=== PATIENT | female | born 1970 | race Caucasian/White ===

== ENCOUNTER 2020-06-15 17:29 | Emergency (ER) | payer MEDICAID ==
[~2020-06-15] VITALS: Ht 154.9 cm; Wt 81.7 kg
[2020-06-15] MEDS ORDERED: LEVEMIR FL100 UNIT/2 SUBQ (17:43)
[2020-06-15] MEDS ORDERED: VICTOZA0.6 MG/0.1 SUBQ (17:43)
[2020-06-15] MEDS ORDERED: LISINOPRIL20 MG PO (17:44)
[2020-06-15] MEDS ORDERED: ADDERALL 10 MG10 MG PO (17:44)
[2020-06-15] MEDS ORDERED: NEURONTIN 300M300 M2 PO (17:44)
[2020-06-15 18:16] LABS: ABSOLUTE BASOPHILS 0.1 thou/uL (0.0-0.2); ABSOLUTE EOSINOPHILS 0.1 thou/uL (0.0-0.7); ABSOLUTE LYMPHOCYTES 4.1 thou/uL (0.8-5.3); ABSOLUTE MONOCYTES 0.8 thou/uL (0.0-1.2); ABSOLUTE NEUTROPHILS 3.4 thou/uL (1.6-8.1); BASOPHILS 1.3 %; EOSINOPHILS 0.8 %; HEMATOCRIT 41.8 % (37.0-47.0); HEMOGLOBIN 14.1 gm/dL (12.0-15.0); LYMPHOCYTES 48.5 %; MCH 30.6 pg (26.0-34.0); MCHC 33.8 g/dL (28.0-37.0); MCV 90.7 fL (80.0-100.0); MONOCYTES 9.1 %; MPV 10.3 fl. (7.2-11.1); NUCLEATED RBCS 0 /100WBC; PLATELET COUNT* 182 thou/uL (150-400); POLYS 40.3 %; RBC 4.61 mil/uL (4.20-5.00); RDW-CV 13.8 % (10.5-14.5); WBC 8.5 thou/uL (4.0-11.0)
[2020-06-15 18:24] LABS: CALCIUM 9.1 mg/dL (8.5-10.1); CREATININE 0.7 mg/dL (0.6-1.3); POTASSIUM 3.9 mmol/L (3.5-5.1)
[2020-06-15 18:39] LABS: ALBUMIN 3.8 g/dL (3.4-5.0); TOTAL BILIRUBIN 0.4 mg/dL (<0.1-1.0); TOTAL PROTEIN 7.4 g/dL (6.4-8.2)
[2020-06-15] MEDS ORDERED: NYSTATIN100000 UNI SW&SWALLOW (21:10)
[2020-06-15] MEDS ORDERED: AMOXICILLIN500 M1 PO (21:13)
[2020-06-15 21:53] VITALS: BP 121/70
--- NOTE | 2020-06-16 10:24 | EKG ---
[place] [address] ELECTROCARDIOGRAM REPORT Name: DAYLIN MELGAR Room: [facility]#: [id number] Admission: 06/15/20 Attend Phys: Discharge: 06/15/20 Date of : 66 Date of Service: 06/15/20 1739 Report #: [id number] THIS REPORT FOR: //name// [facility] ED Test Date: 2020-06-15 Test Time: 17:39:27 Pat Name: DAYLIN MELGAR Department: Room: Gender: F [employer]: : 1970 Requested By: Adrian Calderon Order Number: [id number] MD: Kamar Monroy Measurements Intervals [place] Rate: 88 P: 61 OR: 147 QRS: 62 QRSD: 93 T: -2 QT: 365 QTc: 442 Interpretive Statements Sinus rhythm Baseline wander in lead(s) V1 No previous ECG available for comparison Electronically Signed On 06-16-2020 10:24:41 CDT by Kamar Monroy [email or web address] <ELECTRONICALLY SIGNED> By: Kamar Monroy MD, [facility] 06/16/20 1024 1739 1739 Kamar Monroy MD, [facility] /EPI
== END 2020-06-15 21:54 | disposition home or self-care (01) ==
LOC: M.ERS 17:29
PROVIDERS: Emergency Medicine Emergency Medical Services
DX: R07.89 Other chest pain (principal); R51.9 Headache, unspecified; R11.0 Nausea; B37.9 Candidiasis, unspecified; F17.210 Nicotine dependence, cigarettes, uncomplicated; Z88.8 Allergy status to other drugs, medicaments and biological substances

== ENCOUNTER 2021-01-07 03:37 | Emergency (ER) | payer MEDICAID ==
[~2021-01-07] VITALS: Ht 157.5 cm; Wt 81.3 kg
[~2021-01-07 03:37] MED LIST: ADDERALL 10 MG10 MG PO; AMOXICILLIN500 M1 PO; LEVEMIR FL100 UNIT/2 SUBQ; LISINOPRIL20 MG PO; NEURONTIN 300M300 M2 PO; NYSTATIN100000 UNI SW&SWALLOW; VICTOZA0.6 MG/0.1 SUBQ
[2021-01-07 04:38] LABS: ABSOLUTE BASOPHILS 0.1 thou/uL (0.0-0.2); ABSOLUTE MONOCYTES 0.7 thou/uL (0.0-1.2); ABSOLUTE NEUTROPHILS 4.1 thou/uL (1.6-8.1); BASOPHILS 0.6 %; EOSINOPHILS 0.4 %; HEMOGLOBIN 14.8 gm/dL (12.0-15.0); LYMPHOCYTES 44.9 %; MCH 30.5 pg (26.0-34.0); MCHC 33.6 g/dL (28.0-37.0); MCV 90.6 fL (80.0-100.0); MONOCYTES 7.9 %; MPV 9.3 fl. (7.2-11.1); NUCLEATED RBCS 0 /100WBC; PLATELET COUNT* 185 thou/uL (150-400); POLYS 46.2 %; RBC 4.86 mil/uL (4.20-5.00); RDW-CV 13.5 % (10.5-14.5); WBC 8.9 thou/uL (4.0-11.0)
[2021-01-07 04:47] LABS: CALCIUM 9.1 mg/dL (8.5-10.1); CREATININE 0.8 mg/dL (0.6-1.3); POTASSIUM 3.2 mmol/L (3.5-5.1)
[2021-01-07] MEDS ORDERED: CLONAZEPAM 0.50.5 M1 PO (04:48)
[2021-01-07] MEDS ORDERED: DESYREL150 MG PO (04:49)
[2021-01-07] MEDS ORDERED: VICTOZA0.6 MG/0.1 SUBQ (04:50)
[2021-01-07] MEDS ORDERED: VRAYLAR3 MG PO (04:50)
[2021-01-07] MEDS ORDERED: LEVEMIR100 UNIT/1 (04:51)
[2021-01-07] MEDS ORDERED: ADDERALL 20 MG20 MG PO (04:51)
[2021-01-07 04:52] LABS: ALBUMIN 3.7 g/dL (3.4-5.0); TOTAL BILIRUBIN 0.3 mg/dL (<0.1-1.0); TOTAL PROTEIN 7.8 g/dL (6.4-8.2)
[2021-01-07] MEDS ORDERED: ZYRTEC10 M5 PO (04:52)
[2021-01-07] MEDS ORDERED: LISINOPRIL20 MG PO (04:52)
[2021-01-07] MEDS ORDERED: LYRICA300 MG PO (04:52)
[2021-01-07 05:03] LABS: ALCOHOL 44 mg/dL (<10); SALICYLATE 4.7 mg/dL (2.8-20.0)
[2021-01-07 05:09] LABS: ACETAMINOPHEN < 2 ug/mL (10-30)
[2021-01-07 07:29] LABS: URINE BILIRUBIN NEGATIVE (Negative); URINE BLOOD NEGATIVE (Negative); URINE CLARITY CLEAR; URINE COLOR YELLOW; URINE GLUCOSE-RANDOM NEGATIVE (Negative); URINE KETONES NEGATIVE (Negative); URINE LEUKOCYTES NEGATIVE (Negative); URINE NITRITE NEGATIVE (Negative); URINE PROTEIN NEGATIVE (Negative); URINE UROBILINOGEN 0.2 E.U./dl (0.2-1.0)
[2021-01-07 07:38] LABS: AMP/METHAMP POSITIVE (Negative); BARBITURATES Negative (Negative); BENZODIAZEPINES Negative (Negative); COCAINE Negative (Negative); METHADONE Negative (Negative); OPIATES POSITIVE (Negative); PCP Negative (Negative); THC Negative (Negative)
[2021-01-07 08:45] VITALS: BP 140/76
--- NOTE | 2021-01-07 15:00 | EKG ---
[place] [address] ELECTROCARDIOGRAM REPORT Name: DAYLIN MELGAR Room: [facility]#: [id number] Admission: 01/07/21 Attend Phys: Discharge: 01/07/21 Date of : 66 Date of Service: 01/07/21 0403 Report #: [id number] THIS REPORT FOR: //name// [facility] ED Test Date: 2021-01-07 Test Time: 04:03:31 Pat Name: DAYLIN MELGAR Department: Room: Gender: F [employer]: [place] : 1970 Requested By: Hodan Macdonald Order Number: [id number] MD: Hebert Tolentino Measurements Intervals [place] Rate: 81 P: 53 CT: 156 QRS: 68 QRSD: 118 T: 18 QT: 399 QTc: 464 Interpretive Statements Sinus rhythm Nonspecific intraventricular conduction delay Baseline wander in lead(s) I,II,aVR Compared to ECG 06/15/2020 17:39:27 no change Electronically Signed On 01-07-2021 15:00:03 CDT by Hebert Tolentino [email or web address] <ELECTRONICALLY SIGNED> By: Hebert Tolentino MD, FAC 01/07/21 1500 0403 0403 Hebert Tolentino MD, [facility] /EPI
== END 2021-01-07 09:17 | disposition home or self-care (01) ==
LOC: M.ERS 03:37
PROVIDERS: Emergency Medicine
DX: U07.1 COVID-19 (principal); R45.851 Suicidal ideations; T65.91XA Toxic effect of unspecified substance, accidental (unintentional), initial encounter; E11.9 Type 2 diabetes mellitus without complications; I10 Essential (primary) hypertension; F17.210 Nicotine dependence, cigarettes, uncomplicated; Z90.710 Acquired absence of both cervix and uterus; Z79.4 Long term (current) use of insulin; Z79.899 Other long term (current) drug therapy; Z88.2 Allergy status to sulfonamides; Y92.89 Other specified places as the place of occurrence of the external cause